=== PATIENT | female | born 1955 | race Two or more races ===

== ENCOUNTER 2018-07-17 07:46 | Outpatient (CLI) | payer OTHER | END 2018-07-22 14:47 | disposition home or self-care (01) | LOC: LAB 07:46 | DX: I10 Essential (primary) hypertension (principal); E11.9 Type 2 diabetes mellitus without complications; E03.8 Other specified hypothyroidism; E78.2 Mixed hyperlipidemia; M81.0 Age-related osteoporosis without current pathological fracture ==

== ENCOUNTER 2018-08-13 14:10 | Outpatient (CLI) | payer OTHER | END 2018-08-13 14:25 | disposition home or self-care (01) | LOC: NUCLEAR 14:10 → MAMO-SONO 14:10 → NUCLEAR 14:25 → MAMO-SONO 14:25 | DX: Z12.31 Encounter for screening mammogram for malignant neoplasm of breast (principal); N62 Hypertrophy of breast; M81.0 Age-related osteoporosis without current pathological fracture ==

== ENCOUNTER → 2020-01-21 07:16 | Outpatient (CLI) | payer OTHER | END | disposition home or self-care (01) | LOC: LAB 07:16 | DX: I10 Essential (primary) hypertension (principal); E11.9 Type 2 diabetes mellitus without complications; E03.8 Other specified hypothyroidism; E78.2 Mixed hyperlipidemia ==

== ENCOUNTER 2020-09-26 08:22 | Outpatient (CLI) | payer OTHER | END 2020-09-26 08:32 | disposition home or self-care (01) | LOC: RAD 08:22 | DX: T14.8XXA Other injury of unspecified body region, initial encounter (principal); M19.042 Primary osteoarthritis, left hand ==

== ENCOUNTER 2020-10-03 14:53 | Outpatient (CLI) | payer OTHER | END 2020-10-03 15:08 | disposition home or self-care (01) | LOC: RAD 14:53 | PROVIDERS: ATTEND Orthopaedic Surgery | DX: S62.627A Displaced fracture of middle phalanx of left little finger, initial encounter for closed fracture (principal) ==

== ENCOUNTER 2021-01-18 07:07 | Outpatient (CLI) | payer OTHER | END 2021-01-18 15:00 | disposition home or self-care (01) | LOC: LAB 07:07 | PROVIDERS: ATTEND Orthopaedic Surgery | DX: I10 Essential (primary) hypertension (principal); E11.9 Type 2 diabetes mellitus without complications; E03.8 Other specified hypothyroidism; E78.2 Mixed hyperlipidemia; M81.0 Age-related osteoporosis without current pathological fracture; E21.2 Other hyperparathyroidism; E55.9 Vitamin D deficiency, unspecified; M85.88 Other specified disorders of bone density and structure, other site; E88.89 Other specified metabolic disorders; M81.8 Other osteoporosis without current pathological fracture; E56.1 Deficiency of vitamin K ==

== ENCOUNTER 2021-02-26 13:53 | Outpatient (CLI) | payer OTHER | END 2021-02-26 13:54 | disposition home or self-care (01) | LOC: NUCLEAR 13:53 | PROVIDERS: ATTEND Orthopaedic Surgery | DX: M81.0 Age-related osteoporosis without current pathological fracture (principal) ==

== ENCOUNTER 2021-05-03 10:15 | Outpatient (CLI) | payer OTHER | END 2021-05-03 10:31 | disposition home or self-care (01) | LOC: MAMO-SONO 10:15 | PROVIDERS: ATTEND Specialist | DX: Z12.11 Encounter for screening for malignant neoplasm of colon (principal); E78.00 Pure hypercholesterolemia, unspecified ==

== ENCOUNTER 2021-05-03 11:10 | Outpatient (CLI) | payer OTHER | END 2021-05-03 11:11 | disposition home or self-care (01) | LOC: NUCLEAR 11:10 | PROVIDERS: ATTEND Specialist | DX: E78.00 Pure hypercholesterolemia, unspecified (principal); I66.13 Occlusion and stenosis of bilateral anterior cerebral arteries ==

== ENCOUNTER 2021-05-03 12:06 | Outpatient (CLI) | payer OTHER | END 2021-05-03 12:13 | disposition home or self-care (01) | LOC: LAB 12:06 | PROVIDERS: ATTEND Specialist | DX: Z12.11 Encounter for screening for malignant neoplasm of colon (principal); N95.1 Menopausal and female climacteric states ==

== ENCOUNTER 2021-05-23 08:00 | Outpatient (CLI) | payer OTHER | END 2021-05-23 08:30 | disposition home or self-care (01) | LOC: PPH VACUNA 08:00 | DX: Z23 Encounter for immunization (principal) ==

== ENCOUNTER 2021-06-11 08:00 | Outpatient (CLI) | payer OTHER | END 2021-06-11 08:30 | disposition home or self-care (01) | LOC: PPH VACUNA 08:00 | DX: Z23 Encounter for immunization (principal) ==

== ENCOUNTER 2021-12-12 08:00 | Outpatient (CLI) | payer OTHER | END 2021-12-12 08:30 | disposition home or self-care (01) | LOC: PPH VACUNA 08:00 | PROVIDERS: ATTEND Emergency Medicine Pediatric Emergency Medicine | DX: Z23 Encounter for immunization (principal) ==

== ENCOUNTER 2024-01-28 15:44 | Outpatient (CLI) | payer OTHER | END 2024-01-28 15:46 | disposition home or self-care (01) | LOC: MAMO-SONO 15:44 | PROVIDERS: ATTEND Internal Medicine Cardiovascular Disease | DX: N60.11 Diffuse cystic mastopathy of right breast (principal); N60.12 Diffuse cystic mastopathy of left breast; Z12.31 Encounter for screening mammogram for malignant neoplasm of breast ==

== ENCOUNTER 2024-06-23 08:50 | Outpatient (CLI) | payer OTHER | END 2024-06-23 08:55 | disposition home or self-care (01) | LOC: RAD 08:50 | PROVIDERS: ATTEND Orthopaedic Surgery | DX: S52.571D Other intraarticular fracture of lower end of right radius, subsequent encounter for closed fracture with routine healing (principal) ==

== ENCOUNTER → 2024-07-06 07:06 | Outpatient (CLI) | payer OTHER ==
[2024-07-06 08:26] LABS: ALBUMIN 3.6 gm/dL (3.4-5.0); BILIRUBIN TOTAL 0.5 mg/dL (0.3-1.2); CALCIUM 9.8 mg/dL (8.5-10.1); CREATININE SERUM 0.7 mg/dL (0.55-1.02); GFR 82.72; GLOBULINA 2.8 G/DL (2.4-3.5); PHOSPHOROUS 3.3 mg/dL (2.5-4.9); POTASSIUM 4.21 mEq/L (3.5-5.1); TOTAL PROTEIN 6.4 gm/dL (6.4-8.2)
[2024-07-07 13:06] LABS: CALCIUM IONIZED 5.3 mg/dL (4.5-5.6)
[2024-07-14 17:06] LABS: VITAMIN K 0.64 ng/mL (0.10-2.20)
== END | disposition home or self-care (01) ==
LOC: LAB 07:06
PROVIDERS: ATTEND Orthopaedic Surgery
DX: E55.9 Vitamin D deficiency, unspecified (principal); M85.9 Disorder of bone density and structure, unspecified; E56.1 Deficiency of vitamin K; E21.3 Hyperparathyroidism, unspecified; E88.89 Other specified metabolic disorders; M81.8 Other osteoporosis without current pathological fracture

== ENCOUNTER 2024-07-23 13:04 | Outpatient (CLI) | payer OTHER | END 2024-07-23 13:13 | disposition home or self-care (01) | LOC: NUCLEAR 13:04 | PROVIDERS: ATTEND Orthopaedic Surgery | DX: M81.0 Age-related osteoporosis without current pathological fracture (principal) ==